=== PATIENT | male | born 1955 | race Caucasian/White ===

== ENCOUNTER → 2024-04-10 | Outpatient (CLI) | payer MEDICARE, OTHER, SELFPAY ==
[2024-04-11 14:08] LABS: PSA, Free 1.86 ng/mL; PSA, Free % 9.9 % (.)
== END | disposition home or self-care (01) ==
PROVIDERS: PCP Physician Assistant; Referring Provider Nurse Practitioner; Visit Provider Nurse Practitioner
DX: R97.20 Elevated prostate specific antigen [PSA] (principal)
CPT/HCPCS: 36415; 84153; 84154

== ENCOUNTER → 2024-04-19 | Outpatient (CLI) | payer MEDICARE, OTHER, SELFPAY ==
--- NOTE | 2024-04-19 | IMM_PTH ---
PATIENT: REYNALDO HDZ LOC: [facility] U#:[id number] AGE/SX: 68/M ROOM: RE04/19/[address]: Dr. Jose Grubbs MD : 1955 BED: DIS: 04/19/2024 SPEC #: [id number] RECD: 04/23/24 10:59 STATUS: SHADY REQ #: [id number] LIANNA: 04/19/24 00:[address]: Jose Grubbs DEPT: IMMUNOHISTOCHEMISTRY RECD BY: Sebastien Hamilton ENTERED: 04/23/24 10:59 SP TYPE: IMMUNO OTHR DR: JEANE Cunha Tissues: E - PROSTATE LEFT F - PROSTATE LEFT Procedures: 34BE12 (add) P40 (add) P40 (initial) PHYSICIAN & INSTITUTION [place] [id number] SPECIMEN INFORMATION: Tissue Source: D- Left apex, E- Left mid, F- Left base Clinical Info: Elevated PSA Specimen Number: [id number] , E, F CPT code: 17451j1,11226p1 METHODOLOGY: Deparaffinized sections of prefer/formalin-fixed tissue or PAP/DQ stained slides are incubated with monoclonal/polyclonal antibodies/oligonucleotide probes. Localization is made via biotin free immunoperoxidase method. Appropriate controls are performed and reacted as expected. Results on target cell population are indicated in the following table: RESULTS: ANTIBODY / CLONE RESULT Block E P40 (BC28) negative, a few glands 34BE12 (34BE12) negative, a few glands Block F P40 (BC28) negative 34BE12 (34BE12) negative These tests were developed and their performance characteristics determined by [facility]. They may not have been cleared or approved by the U.S. Food and Drug Administration. The FDA has determined that such clearance or approval is not necessary. The above immunohistochemical/dualISH markers are ordered and reviewed by the Pathologist. INTERPRETATION: E. Prostate, left mid, core biopsy: Focal atypical small acinar proliferation (MICHAEL). F. Prostate, left base, core biopsy: Adenocarcinoma. 04/24/2024
--- NOTE | 2024-04-19 08:00 | PROSBIL_PTH ---
PATIENT: REYNALDO HDZ LOC: [facility] U#:[id number] AGE/SX: 68/M ROOM: RE04/19/[address]: Dr. Jose Grubbs MD : 1955 BED: DIS: 04/19/2024 SPEC #: [id number] RECD: 04/19/24 16:22 STATUS: SHADY YAQUELIN #: [id number] LIANNA: 04/19/24 08:[address]: Jose Grubbs DEPT: SURGICAL PATHOLOGY RECD BY: Jeffery Bustos ENTERED: 04/20/24 07:46 SP TYPE: PROST BX JESÚS DR: JEANE Cunha Tissues: A - PROSTATE RIGHT B - PROSTATE RIGHT C - PROSTATE RIGHT D - PROSTATE LEFT E - PROSTATE LEFT F - PROSTATE LEFT Procedures: PROSTATE BX HEADER OPERATION: Prostate biopsy PRE-OP DIAGNOSIS: Elevated PSA TISSUE SUBMITTED: A - Right apex, B - Right mid, C - Right base, D - Left apex, E - Left mid, F - Left base MICROSCOPIC DIAGNOSIS A. Right prostate, apex, core biopsy: Prostatic tissue, negative for malignancy. Focal mild chronic inflammation. B. Right prostate, mid, core biopsy: Prostatic tissue, negative for malignancy. Focal mild chronic inflammation. C. Right prostate, base, core biopsy: Prostatic tissue, negative for malignancy. D. Left prostate, apex, core biopsy: Prostatic tissue predominantly consists of stromal tissue, negative for malignancy. Focal chronic inflammation and minimal acute inflammation. E. Left prostate, mid, core biopsy: Focal atypical small acinar proliferation (MICHAEL). See comment. F. Left prostate, base, core biopsy: Prostatic adenocarcinoma. [place] grade: 3+3=6 Number of cores involved: 1/ Proportion of tissue involved: ~50% Perineural invasion: Not identified. Greatest tumor length: 0.7 cm 04/23/2024 COMMENT E, F. Immunohistochemistry ([id number]) supports the above diagnosis. MICROSCOPIC DESCRIPTION Slides are reviewed. GROSS DESCRIPTION A - Received is one container designated prostate, right apex. The specimen consists of one elongated fragments of light villarreal-white soft tissue measuring 1.2 cm in length and 0.1 cm in diameter. The specimen is totally submitted in one cassette. B - Received is one container designated prostate, right mid. The specimen consists of one elongated fragments of light villarreal-white soft tissue measuring 1.5 cm in length and 0.1 cm in diameter. The specimen is totally submitted in one cassette. C - Received is one container designated prostate, right base. The specimen consists of one elongated fragments of light villarreal-white soft tissue measuring 1.2 cm in length and 0.1 cm in diameter. The specimen is totally submitted in one cassette. D - Received is one container designated prostate, left apex. The specimen consists of one elongated fragments of light villarreal-white soft tissue measuring 1.5 cm in length and 0.1 cm in diameter. The specimen is totally submitted in one cassette. E - Received is one container designated prostate, left mid. The specimen consists of one elongated fragments of light villarreal-white soft tissue measuring 1.5 cm in length and 0.1 cm in diameter. The specimen is totally submitted in one cassette. F - Received is one container designated prostate, left base. The specimen consists of one elongated fragments of light villarreal-white soft tissue measuring 1.7 cm in length and 0.1 cm in diameter. The specimen is totally submitted in one cassette. / 04/20/2024 TC:0 CPT: G0146
== END | disposition home or self-care (01) ==
LOC: LABSPEC 16:25
PROVIDERS: PCP Physician Assistant; Referring Provider Urology; Visit Provider Urology
DX: R97.20 Elevated prostate specific antigen [PSA] (principal)
CPT/HCPCS: 88305; 88341; 88342; G0416

== ENCOUNTER → 2024-05-08 | Outpatient (CLI) | payer MEDICARE, OTHER, SELFPAY ==
--- NOTE | 2024-05-08 10:30 | PET_ITS ---
EXAM: F-18 Pylarify PET-CT from the skull base to the mid thigh. CLINICAL HISTORY: Malignant neoplasm of the prostate. COMPARISON: None. TECHNIQUE: F-18 Pylarify PET-CT from the skull base to the mid thigh. Dose: 9.791 mCi F-18 Pylarify intravenous injection. FINDINGS: Neck: No focus of abnormal uptake is seen. Chest: No focus of abnormal uptake is seen. Abdomen and pelvis: A focus of increased uptake is seen of the left prostate gland, with SUV max of 13.2. A partially calcified prostate gland is noted. No additional focus of abnormal uptake is noted. Bones: No focus of abnormal uptake is seen. Additional: Prominent aortic calcification is seen; no evidence of abdominal aortic aneurysm. Moderate coronary artery calcification is noted. Degenerative changes of the spine are seen, most prominent at the cervical spine. PET/PET/CT Tumor Base -Thigh Init IMPRESSION: 1. Left prostate focus of abnormal uptake, consistent with malignancy. 2. No additional focus of abnormal uptake is noted. Reading Location: [id number]
== END | disposition home or self-care (01) ==
PROVIDERS: PCP Physician Assistant; Referring Provider Urology; Visit Provider Urology
DX: C61 Malignant neoplasm of prostate (principal)
CPT/HCPCS: 78815; A9595

== ENCOUNTER 2024-06-06 11:49 | Day surgery (SDC) | payer MEDICARE, OTHER, SELFPAY ==
[2024-06-06] VITALS (7 sets, daily range): BP systolic 93–176; BP diastolic 61–92; PULSE 48–74; RESP 16; TEMP 36.1–36.6; O2SAT 99–100; BMI 22.3
--- NOTE | 2024-06-06 12:02 | PRE.ANES_ITS ---
ASA Classification* ASA Classification ASA Classification: 2 Assessment & Plan Anesthesia* Anesthesia Assessment Anesthesia Assessment: Discussed sedation and/or anesthesia options, risks, benefits, and alternatives with patient/parents/legal guardian/POA. Questions invited. The patient/parents/legal guardian/POA seems to understand and agrees to proceed with anesthesia plan. Reviewed the physical assessment, medical history, allergy history and patient home medications list prior to surgery/procedure/anesthetic and documented any changes. Performed airway and anesthesia risk assessments. Anesthesia Type Anesthesia Type: MAC Anesthesia Focused Assessment* Airway Assessment Mouth opens: >3 cm Mallampati Score: II Focused Labs Anesthesia Preop lab: CBC CHEMISTRY COAG Pre-Assessment Diagnosis/Proposed Procedure Planned Operative Procedure(s): colonoscopy Anesthesia History Anesthesia History - designer architect: Anesthesia History - designer architect Hx Hospitalization No 06/06/24 10:14 Any Problems With Anesthesia No 06/06/24 10:14 Cholinesterase deficiency No 06/06/24 10:14 You/Your Family Experience No 06/06/24 10:14 fever (hyperthermia) with Relationship Recent Exposure to Contagious Disease Does patient have nerve No 06/06/24 10:14 stimulator Patient instructed to have device shut off --Does patient have Pacemaker or ICD? When Was Last Pacemaker Check QUESTION #4 FULL TEXT: You/Your Family Experience fever (hyperthermia) with Anesthesia Last Oral Intake Last Oral intake: Last Oral Intake NPO since Meds taken in AM with sips of water? Meds patient instructed to take am of surgery PONV PONV - designer architect: PONV - designer architect Female No 06/01/24 08:19 HX of Motion Sickness Yes 06/01/24 08:19 HX of N/V After Surgery No 06/01/24 08:19 Non-Smoker No 06/01/24 08:19 Duration of Surgery greater No 06/01/24 08:19 than 60 minutes Number of Risk Factors 1 06/01/24 08:19 PONV Score Low Risk 06/01/24 08:19 Height & Weight Height & Weight: Anesthesia: Height & Weight Height 5 ft 7 in 05/23/24 14:08 Respiratory Assessment Respiratory Assessment - designer architect: Respiratory Tract Infection Hx - designer architect Hx Respiratory Tract Infection No 06/06/24 10:14 STOP Sleep Apnea STOP Sleep Apnea - designer architect: STOP Sleep Apnea - designer architect Hx Hypertension No 06/06/24 10:14 Hx Sleep Apnea No 06/06/24 10:14 CPAP BIPAP Do you snore loudly (louder No 06/01/24 08:19 than talking or can be heard Do you often feel tired/ No 06/01/24 08:19 fatigued/ sleepy during daytime? Has anyone observed you stop No 06/01/24 08:19 breathing during sleep? STOP Results Negative 06/01/24 08:19 QUESTION #5 FULL TEXT : Do you snore loudly (louder than talking or can be heard through closed doors)? Tobacco Use History Tobacco Use History - designer architect: Tobacco Use History - designer architect Tobacco Use Smoking Status Never smoker 06/06/24 10:14 Hx Tobacco Use No 06/06/24 10:14 Years Smoking Packs Smoked per Day Smoking Cessation Date was within the last 15 years Hx Smoking Cessation Date Hx Smoking Cessation Counseling Hematologic Medial History Hematologic Hx - designer architect: Hematologic Medical Hx - rn documentation Hx of Blood Transfusion No 06/01/24 08:19 Hx of Transfusion in last 3 No 06/01/24 08:19 Months Date of Last Transfusion (if within last 3 months) Ever experience any problems No 06/01/24 08:19 with transfusion(s)? Specify any problems Hx of Preganancy in last 3 N/A 06/01/24 08:19 Months Nurse Filling Out Transfusion VLEHMAN 06/01/24 08:19 & Questions: Date: 06/01/24 06/01/24 08:19 Time: 08:24 06/01/24 08:19 Patient unable to answer at this time (ie. confused, unrespo /Reproduction History /Reproductive History - designer architect: /Reproductive Hx- designer architect Hx Now Gestational Age (in weeks): EDC: Hx Hx Para Hx Section SAB PFSH Medical History Prostate disease Wears glasses High cholesterol Non-smoker Hyperlipidemia Prostate cancer Home Medications ?Medication ?Instructions ?Recorded ?Last Taken ?Type tamsulosin 0.4 mg capsule (Flomax) 0.4 mg PO QDAY 04/15 08/05 Unknown History multivitamin 1 tab PO QDAY 05/23/24 Unkno wn History atorvastatin 10 mg tablet 10 mg PO DAILY Cholesterol 0 06/06/24 Unknown History Allergy/AdvReac Type Severity Reaction Status Date / Time No Known Allergies Allergy Verified 06/06/24 10:13 Family History Father Heart disease Mother Breast cancer Surgical History History of prostate biopsy Social History household members: spouse current occupational status: retired Smoking Status: Never smoker alcohol intake: never substance use type: does not use Review of Systems (Anesthesia) ROS Narrative System reviewed and no additional complaints, except as documented.
--- NOTE | 2024-06-06 12:57 | HP.PCM_ITS ---
[facility] - General General Date of Admission: 06/06/24 Date of Service: 06/06/24 Chief Complaint: Screening colonoscopy HPI Narrative REYNALDO HDZ, is a 68 M who presents today for his first screening colonoscopy. He has past medical history of prostate cancer currently in remission. Does not take any medicines on daily basis except for atorvastatin. [facility] Medical History Prostate disease Wears glasses High cholesterol Non-smoker Hyperlipidemia Prostate cancer Home Medications ?Medication ?Instructions ?Recorded ?Last Taken ?Type tamsulosin 0.4 mg capsule (Flomax) 0.4 mg PO QDAY 04/15 08/05 Unknown History multivitamin 1 tab PO QDAY 05/23/24 Unkno wn History atorvastatin 10 mg tablet 10 mg PO DAILY Cholesterol 0 06/06/24 Unknown History Allergy/AdvReac Type Severity Reaction Status Date / Time No Known Allergies Allergy Verified 06/06/24 12:06 Family History Father Heart disease Mother Breast cancer Surgical History History of prostate biopsy Social History household members: spouse current occupational status: retired Smoking Status: Never smoker alcohol intake: never substance use type: does not use ROS Constitutional Constitutional: Denies fatigue, fever(s), poor appetite, weight gain or weight loss Gastrointestinal Gastrointestinal: Denies belching, bloating, change in bowel habits, change in stool character, chewing difficulty, coffee ground emesis, constipation, cramping, diarrhea, dyspepsia, dysphagia, early satiety, excessive flatus, fecal incontinence, heartburn, hematemesis, hematochezia, hemorrhoids, loose stools, melena, nausea, odynophagia, rectal bleeding, tenesmus, vomiting or weight changes Vital Signs Vital Signs Vital Signs: 06/06/24 12:08 06/06/24 12:08 Temperature 97.8 F Temperature Source Temporal Pulse Rate 74 Respiratory Rate 16 Respiratory Pattern Normal Blood Pressure 176/92 H Blood Pressure Mean 120 Blood Pressure Source Monitor Blood Pressure Position Semi-Fowlers Blood Pressure Location Left Arm Pulse Ox 100 Oxygen Delivery Method Room Air Weight Weight: 130 lb 1.164 oz Body Mass Index (BMI) 22.3 Physical Exam Const alert, oriented x3, no apparent distress and healthy appearing General Appearance: cooperative GI normal to inspection, nondistended, normoactive bowel sounds, soft to palpation, non-tender and non-distended Percussion: normal to percussion Rectal Exam: deferred Assessment & Plan Assessment/Plan (1) Encounter for screening for malignant neoplasm of colon: PLAN: He was explained alternatives, risk and benefits include understanding bleeding, infection, subsequent perforation, need emergent urgent . He will have an ASA of 3.
--- NOTE | 2024-06-06 13:00 | COLBX_PTH ---
PATIENT: REYNALDO SALGADO LOC: EN U#:[id number] AGE/SX: 68/M ROOM: RE06/06/[address]: Dr. Julio Altman DO : 1955 BED: DIS: 06/06/2024 SPEC #: [id number] RECD: 06/07/24 09:16 STATUS: SHADY YAQUELIN #: [id number] LIANNA: 06/06/24 13:[address]: Julio Altman DEPT: SURGICAL PATHOLOGY RECD BY: Sebastien Hamilton ENTERED: 06/07/24 09:16 SP TYPE: COLON BX OTHR DR: JEANE Cunha Tissues: A - Cecum, NOS B - Transverse colon Procedures: Surgery Specimen Level IV HEADER OPERATION: Colonoscopy PRE-OP DIAGNOSIS: Encounter for screening for malignant neoplasm of colon TISSUE SUBMITTED: A- Cecal polyp biopsy, B- Transverse colon biopsy MICROSCOPIC DIAGNOSIS A, COLON, CECUM, POLYP, BIOPSY: -TUBULAR ADENOMA. B, TRANSVERSE COLON, BIOPSY: -SERRATED POLYP WITH FEATURES OF SESSILE SERRATED LESION. MICROSCOPIC DESCRIPTION Slides are reviewed. GROSS DESCRIPTION Specimen A-received in formalin labeled Reynaldo Salgado, and designated cecal polyp biopsy, are two villarreal tissue fragments and possible vegetable matter aggregating to 0.4 x 0.4 x 0.2 cm. Totally submitted in one cassette.Specimen B-received in formalin labeled Reynaldo Salgado, and designated transverse colon biopsy, is a villarreal tissue fragment that measures 0.3 x 0.3 x 0.2 cm. Totally submitted in one cassette. [facility] 06/07/2024 CPT:57620o0
--- NOTE | 2024-06-06 14:08 | PCM.POST.ANE ---
Anesthesia: Postop Eval I Current Vital Signs Temperature: 97 F Pulse Rate: 51 Blood Pressure: 104/63 Respiratory Rate: 16 Pulse Ox: 99 Oxygen Delivery Method: Room Air Assessment Airway patent: Yes Spontaneous unlabored respirations: Yes Mental status: Asleep nausea: No Vomiting: No Anesthesia Complication: No Fluid Hydration Crystalloid volume administer (ml): 50 Total IV fluid infused: 50 Progress Note Anesthesia document: Postop Eval 1 completed: Yes
--- NOTE | 2024-06-06 14:15 | OP.COLON_ITS ---
Patient Name: Jonathon Salgado Procedure Date: 06/06/2024 1:34 PM Date of : 1955 Age: 68 Procedure: Colonoscopy Indications: Screening for colorectal malignant neoplasm Providers: Julio Altman DO Medicines: Monitored Anesthesia Care Patient Profile: This is a 68 year old male. Refer to note in patient chart for documentation of history and physical. Last Colonoscopy: none. The patient's first colonoscopy is today. Complications: No immediate complications. Procedure: Pre-Anesthesia Assessment: - Prior to the procedure, a History and Physical was performed, and patient medications and allergies were reviewed. The patient is competent. The risks and benefits of the procedure and the sedation options and risks were discussed with the patient. All questions were answered and informed consent was obtained. Patient identification and proposed procedure were verified by the nurse in the pre-procedure area. Mental Status Examination: alert and oriented. Airway Examination: normal oropharyngeal airway and neck mobility. Respiratory Examination: clear to auscultation. CV Examination: normal. Prophylactic Antibiotics: The patient does not require prophylactic antibiotics. Prior Anticoagulants: The patient has taken no anticoagulant or antiplatelet agents except for NSAID medication. ASA Grade Assessment: II - A patient with mild systemic disease. After reviewing the risks and benefits, the patient was deemed in satisfactory condition to undergo the procedure. The anesthesia plan was to use monitored anesthesia care (MAC). Immediately prior to administration of medications, the patient was re-assessed for adequacy to receive sedatives. The heart rate, respiratory rate, oxygen saturations, blood pressure, adequacy of pulmonary ventilation, and response to care were monitored throughout the procedure. The physical status of the patient was re-assessed after the procedure. After I obtained informed consent, the scope was passed under direct vision. Throughout the procedure, the patient's blood pressure, pulse, and oxygen saturations were monitored continuously. The pediatric colonoscope was introduced through the anus and advanced to the cecum, identified by appendiceal orifice and ileocecal valve. The colonoscopy was performed without difficulty. The patient tolerated the procedure well. The quality of the bowel preparation was adequate. Scope In: 1:45:56 PM Scope Withdrawal Time 0 hours 7 minutes 57 seconds Scope Out: 2:00:23 PM Total Procedure Duration Time 0 hours 14 minutes 27 seconds Findings: The perianal and digital rectal examinations were normal. A 5 mm polyp was found in the transverse colon. The polyp was sessile. The polyp was removed with a cold biopsy forceps. Resection and retrieval were complete. Verification of patient identification for the specimen was done. Estimated blood loss was minimal. An 8 mm polyp was found in the ascending colon. The polyp was sessile. The polyp was removed with a hot snare. Resection and retrieval were complete. Verification of patient identification for the specimen was done. Estimated blood loss was minimal. A few small-mouthed diverticula were found in the sigmoid colon. Impression: - One 5 mm polyp in the transverse colon, removed with a cold biopsy forceps. Resected and retrieved. - One 8 mm polyp in the ascending colon, removed with a hot snare. Resected and retrieved. Recommendation: - Repeat colonoscopy in 5 years for surveillance. - Continue present medications. Procedure Code(s): --- Professional --- 99205, Colonoscopy, flexible; with removal of tumor(s), polyp(s), or other lesion(s) by snare technique 23089, 59, Colonoscopy, flexible; with biopsy, single or multiple CPT copyright 2021 [employer]. All rights reserved. The codes documented in this report are preliminary and upon complaint specialist review may be revised to meet current compliance requirements. Julio Altman DO 06/06/2024 2:15:20 PM This report has been signed electronically. Number of Addenda: 0 Note Initiated On: 06/06/2024 1:34 PM
--- NOTE | 2024-06-06 14:15 | OP.CCLET_ITS ---
06/06/2024 Neno Cunha Re : Colonoscopy procedure for Jonathon Breauxr Madai This procedure was performed on Thursday, June 06, 2024. My impressions and recommendations are as follows: Impressions : - One 5 mm polyp in the transverse colon, removed with a cold biopsy forceps. Resected and retrieved. - One 8 mm polyp in the ascending colon, removed with a hot snare. Resected and retrieved. Recommendations : - Repeat colonoscopy in 5 years for surveillance. - Continue present medications. My findings are described in the full procedure note, which is enclosed. If I can be of further assistance, please feel free to contact me at . Sincerely, Julio Altman, 06/06/2024 2:15:20 PM This report has been signed electronically.
--- NOTE | 2024-06-06 14:30 | PCM.POSTANE2 ---
Anesthesia Postop Eval I Sum Postop Eval Completion status Anesthesia document: Postop Eval 1 completed: Yes Anesthesia Postop Eval I Summary Anesthesia Postop Eval I Summary: Anesthesia Postop Eval I: Assessment Summary Airway patent Yes 06/06/24 14:09 [email or web address] Spontaneous unlabored Yes 06/06/24 14:09 [email or web address] respirations Mental status Asleep 06/06/24 14:09 [email or web address] nausea No 06/06/24 14:09 [email or web address] Vomiting No 06/06/24 14:09 [email or web address] Anesthesia Postop Eval I: Fluid Summary Crystalloid volume administer 50 06/06/24 14:09 [email or web address] (ml) Colloids volume administered ( ml) Blood Product volume administered (ml) Total IV fluid infused 50 06/06/24 14:09 [email or web address] Anesthesia Postop Eval I: Summary Notes Anesthesia Complication No 06/06/24 14:09 [email or web address] Anesthesia Complication Comment: Post-operative progress note Anesthesia: Postop Eval II Evaluation Mental status: Awake Pain Level: 0 nausea: No Vomiting: No
== END 2024-06-06 14:58 | disposition home or self-care (01) ==
LOC: EN 11:50 → AC 11:52
PROVIDERS: PCP Physician Assistant; Referring Provider Physician Assistant; Visit Provider Internal Medicine Gastroenterology
PROC: 0DJD8ZZ Inspection of Lower Intestinal Tract, Via Natural or Artificial Opening Endoscopic (ICD-10-PCS; CPT 45378; principal; 2024-06-06 12:55)
DX: Z12.11 Encounter for screening for malignant neoplasm of colon (principal); K63.5 Polyp of colon; E78.00 Pure hypercholesterolemia, unspecified; Z85.46 Personal history of malignant neoplasm of prostate
CPT/HCPCS: 45385; 45380; 88305; A4216; J2405

== ENCOUNTER 2024-06-20 06:55 | Day surgery (SDC) | payer MEDICARE, OTHER, SELFPAY ==
[2024-06-20] VITALS (8 sets, daily range): BP systolic 84–162; BP diastolic 52–78; PULSE 50–61; RESP 16–18; TEMP 36.3–36.6; O2SAT 96–100; BMI 22.3
[2024-06-20] MEDS: 0.9% Normal Saline (1000mL) 1,000 ML 15 ML IV (07:26)
--- NOTE | 2024-06-20 07:58 | PRE.ANES_ITS ---
ASA Classification* ASA Classification ASA Classification: 2 Assessment & Plan Anesthesia* Anesthesia Assessment Anesthesia Assessment: Discussed sedation and/or anesthesia options, risks, benefits, and alternatives with patient/parents/legal guardian/POA. Questions invited. The patient/parents/legal guardian/POA seems to understand and agrees to proceed with anesthesia plan. Reviewed the physical assessment, medical history, allergy history and patient home medications list prior to surgery/procedure/anesthetic and documented any changes. Performed airway and anesthesia risk assessments. Anesthesia Type Anesthesia Type: General Anesthesia Focused Assessment* Temperature: 97.3 F Pulse Rate: 61 Blood Pressure: 162/78 Respiratory Rate: 18 Pulse Ox: 100 Airway Assessment Mouth opens: >3 cm Mallampati Score: II Focused Labs Anesthesia Preop lab: CBC CHEMISTRY COAG Pre-Assessment Diagnosis/Proposed Procedure Planned Operative Procedure(s): Space OAR and Gold Markers Placement Anesthesia History Anesthesia History - medication reconciliation technician: Anesthesia History - medication reconciliation technician Hx Hospitalization No 06/06/24 10:14 Any Problems With Anesthesia No 06/06/24 10:14 Cholinesterase deficiency No 06/06/24 10:14 You/Your Family Experience No 06/06/24 10:14 fever (hyperthermia) with Relationship Recent Exposure to Contagious No 06/20/24 07:12 Disease Does patient have nerve No 06/06/24 10:14 stimulator Patient instructed to have device shut off --Does patient have Pacemaker No 06/20/24 07:12 or ICD? When Was Last Pacemaker Check QUESTION #4 FULL TEXT: You/Your Family Experience fever (hyperthermia) with Anesthesia Last Oral Intake Last Oral intake: Last Oral Intake NPO since 20:00 06/20/24 07:12 Meds taken in AM with sips of No 06/20/24 07:12 water? Meds patient instructed to take am of surgery PONV PONV - medication reconciliation technician: PONV - medication reconciliation technician Female No 06/06/24 10:14 HX of Motion Sickness Yes 06/06/24 10:14 HX of N/V After Surgery No 06/06/24 10:14 Non-Smoker Yes 06/06/24 10:14 Duration of Surgery greater No 06/06/24 10:14 than 60 minutes Number of Risk Factors 2 06/06/24 10:14 PONV Score Moderate Risk 06/06/24 10:14 Height & Weight Height & Weight: Anesthesia: Height & Weight Height 5 ft 4 in 06/20/24 07:12 Weight: 59 kg 06/20/24 07:12 Body Mass Index (BMI) 22.3 06/20/24 07:12 Respiratory Assessment Respiratory Assessment - medication reconciliation technician: Respiratory Tract Infection Hx - medication reconciliation technician Hx Respiratory Tract Infection No 06/06/24 10:14 STOP Sleep Apnea STOP Sleep Apnea - medication reconciliation technician: STOP Sleep Apnea - medication reconciliation technician Hx Hypertension No 06/06/24 10:14 Hx Sleep Apnea No 06/06/24 10:14 CPAP BIPAP Do you snore loudly (louder No 06/06/24 10:14 than talking or can be heard Do you often feel tired/ No 06/06/24 10:14 fatigued/ sleepy during daytime? Has anyone observed you stop No 06/06/24 10:14 breathing during sleep? STOP Results Negative 06/06/24 10:14 QUESTION #5 FULL TEXT : Do you snore loudly (louder than talking or can be heard through closed doors)? Tobacco Use History Tobacco Use History - medication reconciliation technician: Tobacco Use History - medication reconciliation technician Tobacco Use Smoking Status Never smoker 06/06/24 10:14 Hx Tobacco Use No 06/06/24 10:14 Years Smoking Packs Smoked per Day Smoking Cessation Date was within the last 15 years Hx Smoking Cessation Date Hx Smoking Cessation Counseling Hematologic Medial History Hematologic Hx - medication reconciliation technician: Hematologic Medical Hx - assistive technology trainer Hx of Blood Transfusion No 06/06/24 10:14 Hx of Transfusion in last 3 No 06/06/24 10:14 Months Date of Last Transfusion (if within last 3 months) Ever experience any problems No 06/06/24 10:14 with transfusion(s)? Specify any problems Hx of Preganancy in last 3 N/A 06/06/24 10:14 Months Nurse Filling Out Transfusion NBUCHER 06/06/24 10:14 & Questions: Date: 06/06/24 06/06/24 10:14 Time: 10:15 06/06/24 10:14 Patient unable to answer at this time (ie. confused, unrespo /Reproduction History /Reproductive History - medication reconciliation technician: /Reproductive Hx- medication reconciliation technician Hx Now Gestational Age (in weeks): EDC: Hx Hx Para Hx Section SAB Active Medications Active Medications: Current Medications Generic Name Dose Route Start Last Admin Trade Name Freq PRN Reason Stop Dose Admin Cefazolin Sodium 2 gm/ N/A 20 mls @ 400 mls/hr 06/20/24 08:55 IV 06/20/24 08:57 PREOP ONE Sodium Chloride 1,000 mls @ 15 mls/hr 06/20/24 07:05 06/20/24 07:26 IV 15 mls/hr .Q48H MADONNA Administration PFSH Medical History Prostate disease Wears glasses High cholesterol Non-smoker Hyperlipidemia Prostate cancer Home Medications ?Medication ?Instructions ?Recorded ?Last Taken ?Type tamsulosin 0.4 mg capsule (Flomax) 0.4 mg PO QDAY 04/15 08/05 Unknown History multivitamin 1 tab PO QDAY 05/23/24 Unkno wn History atorvastatin 10 mg tablet 10 mg PO DAILY Cholesterol 0 06/06/24 Unknown History Allergy/AdvReac Type Severity Reaction Status Date / Time No Known Allergies Allergy Verified 06/20/24 07:11 Family History Father Heart disease Mother Breast cancer Surgical History History of prostate biopsy Social History household members: spouse current occupational status: retired Smoking Status: Never smoker alcohol intake: never substance use type: does not use Review of Systems (Anesthesia) ROS Narrative System reviewed and no additional complaints, except as documented.
[2024-06-20] MEDS: Cefazolin 2 GM in Syringe IV (09:03)
--- NOTE | 2024-06-20 09:15 | HP.PCM_ITS ---
HPI - General General Date of Service: 06/20/24 Chief Complaint: Prostate cancer HPI Narrative REYNALDO HDZ, is a 68 M who presents placement of gold markers and spacer gel for treatment planning for prostate cancer PFSH Medical History Prostate disease Wears glasses High cholesterol Non-smoker Hyperlipidemia Prostate cancer Home Medications ?Medication ?Instructions ?Recorded ?Last Taken ?Type tamsulosin 0.4 mg capsule (Flomax) 0.4 mg PO QDAY 04/15 08/05 Unknown History multivitamin 1 tab PO QDAY 05/23/24 Unkno wn History atorvastatin 10 mg tablet 10 mg PO DAILY Cholesterol 0 06/06/24 Unknown History Allergy/AdvReac Type Severity Reaction Status Date / Time No Known Allergies Allergy Verified 06/20/24 07:11 Family History Father Heart disease Mother Breast cancer Surgical History History of prostate biopsy Social History household members: spouse current occupational status: retired Smoking Status: Never smoker alcohol intake: never substance use type: does not use Vital Signs Vital Signs Vital Signs: 06/20/24 07:12 06/20/24 07:12 06/20/24 07:59 Temperature 97.3 F L 97.3 F L Temperature Source Temporal Pulse Rate 61 61 Respiratory Rate 18 18 Respiratory Pattern Normal Blood Pressure 162/78 H 162/78 H Blood Pressure Mean 106 Blood Pressure Source Monitor Blood Pressure Position Semi-Fowlers Blood Pressure Location Left Arm Pulse Ox 100 100 Oxygen Delivery Method Room Air Weight Weight: 59 kg Body Mass Index (BMI) 22.3
--- NOTE | 2024-06-20 09:16 | DCINST_ITS ---
Discharge Instructions Diet Discharge Diet: No restrictions DC O2, CPAP, BIPAP needs Home O2 Discharge instructions: No Dressing / Incision Discharge Activity: Return to Normal Activity and May Not Drive (while taking narcotic pain medications.) Dressing / Incision Call your doctor if you observe: Fever of 101 or Higher Follow Up Care Please Follow Up With: Jose Grubbs MD When: Call [phone] for an appointment Test Results: Test results from this visit will be discussed in further detail at your follow- up appointment, if applicable. Discharge Plan Admission Primary Reason for Your Visit: Placement of gold markers and spacer gel Attending Provider: Jose Grubbs Primary Care Provider: Last Aj Instructions Print Language: Macedonian Discharge Orders/Prescriptions Prescriptions: No Action tamsulosin [Flomax] 0.4 mg capsule 0.4 mg PO QDAY multivitamin Tablet 1 tab PO QDAY atorvastatin 10 mg tablet 10 mg PO DAILY Referrals / Follow Up: Last Aj PA [Primary Care Provider] - Disposition Disposition (needs filled in before D/C Order can be placed): Home, Self Care
--- NOTE | 2024-06-20 09:16 | PCM.OPRPT ---
Operative Report (Standard) Operative Information Date of Procedure: 06/20/24 Pre-Operative Diagnosis: Prostate cancer Post-Operative Diagnosis: The same Surgery/Procedure Performed: Placement of gold markers and spacer gel matrix under ultrasound guidance steam meter reader: No Type of Anesthesia: General RN Documented Start/Stop Times: Operation Date: 06/20/24 08:55 Case Time Into Pre-Op 06/20/24 07:01 Out of Pre-Op 06/20/24 08:53 Anesthesia Start 06/20/24 08:54 Into Room 06/20/24 08:54 Procedure Start 06/20/24 09:09 Procedure End 06/20/24 09:13 Procedure Start Time: :09 Procedure Stop Time: 09:17 Select all DRAINS/GRAFTS/IMPLANTS that apply: None Estimated Blood Loss: 0 Specimen collected: No Description of surgery: In the preoperative area I reviewed with the patient how the procedure is done we talked about the risk of the procedure including the risk of infection, bleeding, migration of the spacer gel, the patient is planning to have radiation to the prostate he understands that the spacer gel has demonstrated benefit in reducing the risk of toxicity from the ration radiation to the rectum but there is no guarantees that this spacer gel will prevent any serious complications or toxicity to the rectum or bowels. After reviewing this with the patient and his family organ to proceed with placement of a spacer gel matrix. Patient was taken back to the operating room after smooth induction of anesthesia he was placed supine on the table. The genitals and perineum were prepped and draped in usual sterile fashion. I then introduced a biplanar ultrasound probe into the rectum and performed ultrasonography and identified the Denonvilliers' fascia the prostate mid base and apex and seminal vesicles. The spacer gel mix was then prepared on the back table per manufactures instruction. Under ultrasound guidance in the midline perineum a bevel needle down we advanced through the perineum below the prostate into the space of Denonvilliers' fascia. This space which could be identified by ultrasound with a bright white layer between the prostate and the rectum. I then injected a puff of normal saline to identify the space further. After I confirmed that the needle was in the correct space in the mid prostate and the space of Denonvilliers' fascia between the rectum and the prostate. Then over the course of 15 seconds the gel matrix was injected slowly there was nice separation between the prostate and the rectum at the gel matrix was injected. The position of the gel matrix was confirmed by ultrasound. The penis and testicles were prepped and draped in usual sterile fashion, ultrasound probe was placed into the rectum and biplanar ultrasound was performed on the prostate. Identified the base mid and apex of the prostate identified the transition zone prostate. Then using a needle the first hand pattern marker was placed into the right base of the prostate, the second hand pattern marker was placed in the left base of the prostate, and the third core marker was placed in the right apex of the prostate after all 3 markers were placed the placement of the markers were confirmed by ultrasonography. Then the injection needle was removed intact. Patient's perineum was cleaned patient was taken out of stirrups and then taken back to the PACU in good condition. Surgical Findings: prostate Complications Complications: No Admit VTE Documentation VTE Present on Admission: No VTE Mechan Device Prophylaxis: SCD's VTE Pharm Prophylaxis ordered?: No
--- NOTE | 2024-06-20 09:24 | PCM.POST.ANE ---
Anesthesia: Postop Eval I Current Vital Signs Temperature: 97.9 F Pulse Rate: 52 Blood Pressure: 101/64 Respiratory Rate: 16 Pulse Ox: 98 Oxygen Delivery Method: Room Air Assessment Airway patent: Yes Spontaneous unlabored respirations: Yes Mental status: Asleep nausea: No Vomiting: No Anesthesia Complication: No Fluid Hydration Crystalloid volume administer (ml): 900 Total IV fluid infused: 900 Progress Note Anesthesia document: Postop Eval 1 completed: Yes
--- NOTE | 2024-06-20 11:04 | POSTOPAN2_ITS ---
Anesthesia Postop Eval I Sum Postop Eval Completion status Anesthesia document: Postop Eval 1 completed: Yes Anesthesia Postop Eval I Summary Anesthesia Postop Eval I Summary: Anesthesia Postop Eval I: Assessment Summary Airway patent Yes 06/20/24 09:25 [email or web address] Spontaneous unlabored Yes 06/20/24 09:25 [email or web address] [email or web address] respirations Mental status Asleep 06/20/24 09:25 [email or web address] nausea No 06/20/24 09:25 [email or web address] [email or web address] Vomiting No 06/20/24 09:25 [email or web address] [email or web address] Anesthesia Postop Eval I: Fluid Summary Crystalloid volume administer 900 06/20/24 09:25 [email or web address] (ml) Colloids volume administered ( ml) Blood Product volume administered (ml) Total IV fluid infused 900 06/20/24 09:25 [email or web address] Anesthesia Postop Eval I: Summary Notes Anesthesia Complication No 06/20/24 09:25 [email or web address] Anesthesia Complication Comment: Post-operative progress note Anesthesia: Postop Eval II Evaluation Mental status: Awake Pain Level: 1 nausea: No Vomiting: No
--- NOTE | 2024-06-20 11:04 | PCM.POSTANE2 ---
Anesthesia Postop Eval I Sum Postop Eval Completion status Anesthesia document: Postop Eval 1 completed: Yes Anesthesia Postop Eval I Summary Anesthesia Postop Eval I Summary: Anesthesia Postop Eval I: Assessment Summary Airway patent Yes 06/20/24 09:25 [email or web address] Spontaneous unlabored Yes 06/20/24 09:25 [email or web address] respirations Mental status Asleep 06/20/24 09:25 [email or web address] nausea No 06/20/24 09:25 [email or web address] Vomiting No 06/20/24 09:25 [email or web address] Anesthesia Postop Eval I: Fluid Summary Crystalloid volume administer 900 06/20/24 09:25 [email or web address] (ml) Colloids volume administered ( ml) Blood Product volume administered (ml) Total IV fluid infused 900 06/20/24 09:25 [email or web address] Anesthesia Postop Eval I: Summary Notes Anesthesia Complication No 06/20/24 09:25 [email or web address] Anesthesia Complication Comment: Post-operative progress note Anesthesia: Postop Eval II Evaluation Mental status: Awake Pain Level: 1 nausea: No Vomiting: No
== END 2024-06-20 10:21 | disposition home or self-care (01) ==
LOC: SDC 06:57 → AC 06:58
PROVIDERS: PCP Physician Assistant; Referring Provider Urology; Visit Provider Urology
PROC: (CPT 55874; principal; 2024-06-20 08:40)
DX: C61 Malignant neoplasm of prostate (principal); E78.00 Pure hypercholesterolemia, unspecified
CPT/HCPCS: 55876; 00400; A4648; C1889

== ENCOUNTER → 2024-07-04 | Outpatient (CLI) | payer MEDICARE, OTHER, SELFPAY ==
--- NOTE | 2024-07-04 10:20 | MRI_ITS ---
EXAM: PELVIS W/WO CONTRAST 07/04/2024 CLINICAL HISTORY: PLANNING FOR RADIATION FOR PROSTATE CANCER. TECHNIQUE: MRI of the pelvis was performed. Multiplanar and multisequence images were obtained intravenous gadolinium contrast. Using a large [id number], the entire pelvis to the level of the aortic bifurcation was imaged with the following sequences: Post-contrast fat suppressed T1-weighted, diffusion weighted, fat suppressed T2- weighted, STIR and dynamic post enhanced images. CONTRAST: Clariscan VOLUME: 13 mL Gauge IV COMPARISON: PET-CT on 05/10/2024. FINDINGS: Prostate Size: 4.2 X 3.3 X 3.5 cm. Volume: 26 cc. Transition zone: Findings of mild benign prostatic hyperplasia. Scattered well- defined BPH nodules. No evidence of diffusion restriction or hemorrhage. PI-RADS 2. Peripheral Zone: Heterogeneously enhancing ill-defined nodule is noted in the left posterolateral aspect of the peripheral zone measuring 2.3 x 1.8 cm showing significant restricted diffusion with mild bulging of the corresponding prostatic capsule. No secondary invasion of the bladder or rectum.. PI-RADS 5. Seminal vesicles: Slightly prominent. Bladder: Trabeculated thick walled. Bones: No abnormal signal or aggressive lesion seen. Miscellaneous: Mild amount of free pelvic fluid. Well-defined nonenhancing cystic lesion in the anterior right paramedian aspect of the anorectal junction measuring 1.8 x 1.5 cm, probably benign chronic finding. MRI/Pelvis W/WO Contrast IMPRESSION: 1. Prostate Size: 4.2 X 3.3 X 3.5 cm. 2. Volume: 26 cc. 3. Transition zone: PI-RADS 2. 4. Peripheral Zone: PI-RADS 5. 5. Mild amount of free pelvic fluid. 6. Well-defined nonenhancing cystic lesion in the anterior right paramedian asp ect of the anorectal junction measuring 1.8 x 1.5 cm, probably benign chronic finding. Reading Location: [place] [id number]
== END | disposition home or self-care (01) ==
LOC: MRI 10:17
PROVIDERS: PCP Physician Assistant; Referring Provider Student in an Organized Health Care Education/Training Program; Visit Provider Student in an Organized Health Care Education/Training Program
DX: C61 Malignant neoplasm of prostate (principal)
CPT/HCPCS: 72197; A9575; A4216